=== PATIENT | female | born 1995 | race Caucasian/White ===

== ENCOUNTER → 2017-07-10 | Outpatient (REF) | payer OTHER | LOC: M LAB REF 20:44 | PROVIDERS: ATTEND Physician Assistant | DX: N39.0 Urinary tract infection, site not specified (principal) ==

== ENCOUNTER → 2017-07-22 | Outpatient (REF) | payer OTHER | LOC: M LAB REF 16:29 | PROVIDERS: ATTEND Physician Assistant | DX: R30.0 Dysuria (principal) ==

== ENCOUNTER → 2017-08-06 | Outpatient (REF) | payer OTHER | LOC: M LAB REF 20:44 | PROVIDERS: ATTEND Physician Assistant | DX: N39.0 Urinary tract infection, site not specified (principal) ==

== ENCOUNTER → 2017-11-03 | Outpatient (REF) | payer OTHER | LOC: M LAB REF 16:40 | DX: R30.0 Dysuria (principal) ==

== ENCOUNTER → 2018-01-30 | Outpatient (REF) | payer OTHER | LOC: M LAB REF 12:19 | DX: N39.0 Urinary tract infection, site not specified (principal) ==

== ENCOUNTER → 2018-07-21 | Outpatient (REF) | payer OTHER ==
[2018-07-22 02:21] LABS: CHLAMYDIA DNA AMPLIFICATION NEGATIVE (NEGATIVE); GC DNA AMPLIFICATION NEGATIVE (NEGATIVE)
== END ==
LOC: M LAB REF 16:34
DX: R30.0 Dysuria (principal)

== ENCOUNTER → 2018-12-06 | Outpatient (REF) | payer OTHER | LOC: M LAB REF 09:14 | PROVIDERS: ATTEND Physician Assistant | DX: A08.4 Viral intestinal infection, unspecified (principal) ==

== ENCOUNTER → 2020-02-03 | Outpatient (REF) | payer OTHER ==
[2020-02-03 17:39] LABS: HEMATOCRIT 40.6 % (36.0-47.0); HEMOGLOBIN 14.2 g/dl (12.0-15.5); MEAN CORPUSCULAR HEMOGLOBIN 30.9 pg (27.0-33.0); MEAN CORPUSCULAR VOLUME 88.3 fl (80.0-96.0); PLATELET COUNT, AUTOMATED 267 10^3/uL (150-450); WHITE BLOOD COUNT 6.6 10^3/uL (4.0-10.0)
[2020-02-03 18:09] LABS: HCG, SERUM QUANTITATIVE 106423 MIU/ML
[2020-02-04 08:15] LABS: RUBELLA IgG QUALITATIVE IMMUNE (IMMUNE)
[2020-02-04 08:44] LABS: HIV 1&2 SCREEN CENTAUR NEGATIVE (NEGATIVE)
[2020-02-04 09:10] LABS: HEPATITIS C VIRUS ABY INDEX 0.1 INDEX (<0.8)
== END ==
LOC: M LAB REF 17:01
PROVIDERS: ATTEND Obstetrics & Gynecology
DX: Z36.89 Encounter for other specified antenatal screening (principal); Z3A.00 Weeks of gestation of pregnancy not specified

== ENCOUNTER → 2020-03-29 | Outpatient (CLI) | payer OTHER ==
[2020-03-29 13:51] LABS: BASO % 0.1 % (0.0-1.0); LYMPH # 0.6 10^3/uL (1.5-5.0); LYMPH % 5.1 % (24.0-44.0); MEAN CORPUSCULAR HEMOGLOBIN 30.7 pg (27.0-33.0); MEAN CORPUSCULAR HGB CONC 35.3 g/dl (32.0-36.5); MONO # 0.5 10^3/uL (0.0-0.8); MONO % 4.2 % (0.0-5.0); NEUTROPHILS # 10.3 10^3/uL (1.5-8.5); NEUTROPHILS % 90.1 % (36.0-66.0); PLATELET COUNT, AUTOMATED 222 10^3/uL (150-450); RED BLOOD COUNT 3.91 10^6/uL (4.00-5.40); WHITE BLOOD COUNT 11.4 10^3/uL (4.0-10.0)
[2020-03-29 13:57] LABS: ALBUMIN 3.3 GM/DL (3.2-5.2); ALT/SGPT 13 U/L (12-78); BILIRUBIN,TOTAL 1.1 MG/DL (0.2-1.0); BLOOD UREA NITROGEN 4 MG/DL (7-18); CALCIUM LEVEL 9.2 MG/DL (8.5-10.1); CARBON DIOXIDE LEVEL 24 MEQ/L (21-32); CHLORIDE LEVEL 103 MEQ/L (98-107); CREATININE FOR GFR 0.48 MG/DL (0.55-1.30); GLOMERULAR FILTRATION RATE > 60.0 (>60); GLUCOSE, FASTING 84 MG/DL (70-100); POTASSIUM SERUM 3.3 MEQ/L (3.5-5.1); SODIUM LEVEL 135 MEQ/L (136-145); TOTAL PROTEIN 7.8 GM/DL (6.4-8.2)
[2020-03-29 15:39] LABS: CHLAMYDIA DNA AMPLIFICATION NEGATIVE (NEGATIVE); GC DNA AMPLIFICATION NEGATIVE (NEGATIVE)
== END ==
LOC: M WUC 12:10
PROVIDERS: ATTEND Physician Assistant
DX: R30.0 Dysuria (principal); R11.2 Nausea with vomiting, unspecified

== ENCOUNTER → 2020-04-11 | Outpatient (REF) | payer OTHER | LOC: M LAB REF 12:15 | PROVIDERS: ATTEND Obstetrics & Gynecology | DX: N39.0 Urinary tract infection, site not specified (principal) ==

== ENCOUNTER → 2020-09-08 | Outpatient (CLI) | payer OTHER ==
[~2020-09-08] MED LIST: MULTTAB20 PO
== END ==
LOC: M LABSMTC 10:53
PROVIDERS: ATTEND Anesthesiology
DX: Z01.812 Encounter for preprocedural laboratory examination (principal); Z20.828 Contact with and (suspected) exposure to other viral communicable diseases

== ENCOUNTER 2020-09-13 05:29 | Inpatient (IN) | payer OTHER, BC ==
[~2020-09-13] VITALS: Ht 160 cm; Wt 56.8 kg
[2020-09-13] VITALS (9 sets, daily range): BP systolic 122–144; BP diastolic 66–96
[2020-09-13] MEDS ORDERED: LACTATED RINGER'S 1000 ML IV STA (05:41)
[2020-09-13] MEDS ORDERED: LR 1,000 ML IV SCH (05:41)
[2020-09-13] MEDS ORDERED: BICITRA 30ML SOLN UDC PO ONE (05:45)
[2020-09-13] MEDS ORDERED: ceFAZolin SOD 2 GM in IV 1 EA IV ONE (05:45)
[2020-09-13 06:35] LABS: HEMATOCRIT 40.3 % (36.0-47.0); MEAN CORPUSCULAR HEMOGLOBIN 28.3 pg (27.0-33.0); MEAN CORPUSCULAR HGB CONC 32.3 g/dl (32.0-36.5); MEAN CORPUSCULAR VOLUME 87.6 fl (80.0-96.0); PLATELET COUNT, AUTOMATED 190 10^3/uL (150-450); WHITE BLOOD COUNT 9.5 10^3/uL (4.0-10.0)
[2020-09-13] MEDS ORDERED: ONDANSETRON 4MG/2ML VIAL As Ordered ONE (07:15)
[2020-09-13] MEDS ORDERED: OXYTOCIN INJ 10 UNITS/ML VIAL (J2590) As Ordered ONE (07:15)
[2020-09-13] MEDS ORDERED: dexameTHASONE 4 MG/ML 1ML VIAL (J1100 PER 1MG) As Ordered ONE (07:15)
[2020-09-13] MEDS ORDERED: fentaNYL 100 MCG/2 ML INJECTION (J3010) As Ordered ONE (07:15)
[2020-09-13] MEDS ORDERED: MORPHINE PRES-FREE INJ 10 MG/10 ML VIAL (J2274) As Ordered ONE (07:16)
[2020-09-13] MEDS ORDERED: OXYTOCIN DRIP 30 UNITS in IV 1 EA IV SCH (07:35)
[2020-09-13] MEDS ORDERED: MEASLES,MUMPS,RUBELLA VACCINE INJ (MMR-II) (90707) SC SCH (07:45)
[2020-09-13] MEDS ORDERED: RHOGAM 300 MCG (1500 IU) INJ (J2790) IM SCH (07:45)
[2020-09-13] MEDS ORDERED: MOM 30ML SUSPENSION UDC PO PRN (07:45)
[2020-09-13] MEDS ORDERED: ePHEDrine SULFATE 25 MG/5 ML(5MG/ML) SYRINGE As Ordered ONE (07:52)
[2020-09-13] MEDS ORDERED: diphenhydrAMINE 50MG/ML VIAL (J1200) IV PRN ×2 (07:53→09:30)
[2020-09-13] MEDS ORDERED: ONDANSETRON 4MG/2ML VIAL IV PRN ×2 (07:53→09:30)
[2020-09-13] MEDS ORDERED: NALOXONE INJ 0.4MG/1ML VIAL (J2310 PER 1MG) IV PRN ×2 (07:53)
[2020-09-13] MEDS ORDERED: METOCLOPRAMIDE INJ 10MG/2ML VIAL (J2765 PER 1) IV PRN (07:53)
[2020-09-13 08:14] LABS: CORD GAS ABE A 1.2; CORD GAS HCO3 A 30.6 MEQ/L; CORD GAS O2 SAT A 35.8 %; CORD GAS PCO2 A 72.3 mmHg; CORD GAS PH A 7.245 UNITS; CORD GAS PO2 A 18.3 mmHg; CORD GAS SBC A 24.1 MEQ/L; CORD GAS TCO2 A 32.9 MEQ/L
[2020-09-13 08:16] LABS: CORD GAS ABE V -1.7; CORD GAS HCO3 V 25.5 MEQ/L; CORD GAS O2 SAT V 76.5 %; CORD GAS PCO2 V 52.9 mmHg; CORD GAS PH V 7.301 UNITS; CORD GAS PO2 V 33.3 mmHg; CORD GAS SBC V 22.6 MEQ/L; CORD GAS TCO2 V 27.1 MEQ/L
[2020-09-13] MEDS: DOCUSATE SODIUM 100MG CAPSULE PO SCH ×2 (09:00→20:20)
[2020-09-13] MEDS: PRENATAL VITAMINS CHEWABLE TABLET PO SCH (09:00)
[2020-09-13] MEDS ORDERED: OXYTOCIN 30 UNITS IN 0.9% NaCl 500ML IV BAG (J2590) As Ordered ONE (09:29)
[2020-09-13] MEDS ORDERED: oxyCODONE 5MG TAB PO PRN (09:30)
[2020-09-13] MEDS ORDERED: MEPERIDINE INJ 25 MG/ML VIAL (J2175) IV PRN (09:30)
[2020-09-13] MEDS ORDERED: HYDROMORPHONE HCL 0.5 MG/ 0.5 ML SYRINGE (J1170 PER 1) IV PRN (09:30)
[2020-09-13] MEDS ORDERED: fentaNYL 100 MCG/2 ML INJECTION (J3010) IV PRN (09:30)
[2020-09-13] MEDS: PERCOCET 5MG/325MG TAB PO PRN ×2 (12:09→18:37)
[2020-09-13] MEDS: KETOROLAC 30 MG/ML 1ML VIAL IV SCH ×2 (14:26→20:20)
[2020-09-14 02:00] VITALS: BP 128/77
[2020-09-14] MEDS: KETOROLAC 30 MG/ML 1ML VIAL IV SCH (02:00)
[2020-09-14] MEDS: PERCOCET 5MG/325MG TAB PO PRN ×3 (05:59→21:37)
[2020-09-14 06:00] VITALS: BP 131/71
[2020-09-14 07:53] LABS: HEMATOCRIT 29.5 % (36.0-47.0); MEAN CORPUSCULAR HEMOGLOBIN 28.8 pg (27.0-33.0); MEAN CORPUSCULAR HGB CONC 32.2 g/dl (32.0-36.5); MEAN CORPUSCULAR VOLUME 89.4 fl (80.0-96.0); PLATELET COUNT, AUTOMATED 138 10^3/uL (150-450); WHITE BLOOD COUNT 12.1 10^3/uL (4.0-10.0)
[2020-09-14 07:55] LABS: HEMOGLOBIN 9.5 g/dl (12.0-15.5)
[2020-09-14] MEDS: DOCUSATE SODIUM 100MG CAPSULE PO SCH ×2 (08:04→21:17)
[2020-09-14] MEDS: PRENATAL VITAMINS CHEWABLE TABLET PO SCH (08:04)
[2020-09-14] MEDS: IBUPROFEN 800 MG TAB PO SCH ×2 (09:02→18:14)
[2020-09-14 10:00] VITALS: BP 120/81
[2020-09-14 14:00] VITALS: BP 129/80
[2020-09-14 18:00] VITALS: BP 131/78
[2020-09-14 22:00] VITALS: BP 138/88
[2020-09-15] MEDS: IBUPROFEN 800 MG TAB PO SCH ×2 (01:48→10:14)
[2020-09-15 02:00] VITALS: BP 130/77
[2020-09-15 06:00] VITALS: BP 131/84
[2020-09-15] MEDS ORDERED: PERCOCET PO (07:09)
[2020-09-15] MEDS ORDERED: IBUP80TA PO (07:09)
[2020-09-15] MEDS: DOCUSATE SODIUM 100MG CAPSULE PO SCH (07:29)
[2020-09-15] MEDS: PRENATAL VITAMINS CHEWABLE TABLET PO SCH (07:29)
[2020-09-15] MEDS: PERCOCET 5MG/325MG TAB PO PRN (07:30)
--- NOTE | 2020-09-15 12:32 | RO ---
OPERATIVE NOTE DATE OF OPERATION: 09/13/2020 Summer is a 24-year-old female 1 para 0 who was admitted at 39-4/7 weeks gestation with breech presentation for elective primary section. PREOPERATIVE DIAGNOSIS: Breech presentation at term. POSTOPERATIVE DIAGNOSES: 1. Breech presentation at term. 2. Double footling breech. PROCEDURE: Primary low transverse section via Pfannenstiel incision. ANESTHESIA: Spinal. SURGEON: Maikol Deluna DO SENIOR LITIGATION PARALEGAL: Kaycee Jimenez COMPLICATIONS: None. ESTIMATED BLOOD LOSS: 500 mL. FINDINGS: Live female , double footling breech; 7/9; weight 7 pounds 7 ounces. Normal-appearing tubes and ovaries. PROCEDURE: After obtaining informed consent, the patient was taken to the operating room. Once spinal anesthetic was found to be adequate, she was then draped and prepped in the usual sterile fashion in the supine position. At this point, a Escalante catheter was placed in the bladder for drainage. We then made a Pfannenstiel incision with the help of Kaycee Jimenez. The incision was carried down to the fascia. The fascia was incised in the midline fashion and carried through the laterally. The superior aspect of the fascia was then grasped with a Tia clamp and tented off and dissected off the rectus muscles sharply. The inferior aspect was dissected off in a similar fashion. Rectus muscles were severe in midline fashion. Peritoneum identified. Peritoneal cavity entered bluntly. Superior and inferior dissection of the peritoneum was then done with good visualization of the bladder. At this point, a Mobius skin retractor was placed. A low transverse uterine incision was made. The infant was delivered in atraumatic fashion. The nose and mouth bulb suctioned, the cord doubly clamped and cut and infant was handed over to the waiting warmer. Cord blood and cord gas was sent. Placenta removed manually. Uterus cleared of all clots and debris, and the uterine incision was then repaired in two separate layers of 0 Vicryl suture. The fascia was closed in two separate segments of 0 Vicryl sutures. All superficial bleeders coagulated. The skin was then reapproximated in subcuticular fashion using 3-0 Vicryl on a Fausto. Steri-Strips placed. The patient tolerated the procedure well. She was then transferred to the recovery room in stable condition. [facility]
== END 2020-09-15 11:45 | disposition home or self-care (01) | DRG 540 ==
LOC: M LDI 05:29 → M OBS 10:47
PROVIDERS: ADMIT Obstetrics & Gynecology; ATTEND Obstetrics & Gynecology
PROC: 10D00Z1 Extraction of Products of Conception, Low, Open Approach (ICD-10-PCS; principal; 2020-09-13 07:30)
DX: O32.8XX0 Maternal care for other malpresentation of fetus, not applicable or unspecified (principal); Z3A.39 39 weeks gestation of pregnancy; Z37.0 Single live birth

== ENCOUNTER → 2021-02-04 | Outpatient (REF) ==
[~2021-02-04] MED LIST changes: +IBUP80TA PO; +PERCOCET PO
== END ==
LOC: M LABSMTC 09:18
PROVIDERS: ATTEND Pediatrics
DX: Z20.822 Contact with and (suspected) exposure to COVID-19 (principal)

== ENCOUNTER → 2021-06-28 | Outpatient (REF) | LOC: M LABSMTC 11:07 | PROVIDERS: ATTEND Family Medicine | DX: Z20.828 Contact with and (suspected) exposure to other viral communicable diseases (principal) ==

== ENCOUNTER → 2022-07-12 | Outpatient (REF) ==
[2022-07-12 16:51] LABS: RSV AMPLIFICATION NEGATIVE (NEGATIVE)
== END ==
LOC: M EMP 13:55
PROVIDERS: ATTEND Family Medicine
DX: Z20.822 Contact with and (suspected) exposure to COVID-19 (principal)

== ENCOUNTER → 2022-08-20 | Outpatient (CLI) | payer BC, OTHER ==
[2022-08-20 13:02] LABS: BASO % 0.3 % (0.0-1.0); EOS # 0.1 10^3/uL (0.0-0.5); EOS % 1.2 % (0.0-3.0); HEMATOCRIT 43.8 % (36.0-47.0); HEMOGLOBIN 13.5 g/dl (12.0-15.5); LYMPH # 1.4 10^3/uL (1.5-5.0); LYMPH % 23.1 % (24.0-44.0); MEAN CORPUSCULAR HEMOGLOBIN 27.1 pg (27.0-33.0); MEAN CORPUSCULAR HGB CONC 30.8 g/dl (32.0-36.5); MEAN CORPUSCULAR VOLUME 87.8 fl (80.0-96.0); MONO # 0.8 10^3/uL (0.0-0.8); MONO % 12.9 % (2.0-8.0); NEUTROPHILS # 3.7 10^3/uL (1.5-8.5); NEUTROPHILS % 62.2 % (36.0-66.0); PLATELET COUNT, AUTOMATED 302 10^3/uL (150-450); RED BLOOD COUNT 4.99 10^6/uL (4.00-5.40)
[2022-08-20 13:52] LABS: ALBUMIN 3.7 GM/DL (3.2-5.2); ALT/SGPT 41 U/L (12-78); BILIRUBIN,TOTAL 0.3 MG/DL (0.2-1.0); BLOOD UREA NITROGEN 3 MG/DL (7-18); CALCIUM LEVEL 9.5 MG/DL (8.5-10.1); CARBON DIOXIDE LEVEL 30 MEQ/L (21-32); CHLORIDE LEVEL 104 MEQ/L (98-107); CREATININE FOR GFR 0.65 MG/DL (0.55-1.30); FERRITIN 8 NG/ML (8-252); GLOMERULAR FILTRATION RATE > 60.0 (>60); GLUCOSE, FASTING 70 MG/DL (70-100); IRON (FE) 29 UG/DL (50-170); PERCENT SATURATION 6.7 % (13.2-45.0); POTASSIUM SERUM 3.9 MEQ/L (3.5-5.1); SODIUM LEVEL 140 MEQ/L (136-145); TOTAL IRON BINDING CAPACITY 435 UG/DL (250-450); TOTAL PROTEIN 8.5 GM/DL (6.4-8.2)
[2022-08-20 14:31] LABS: TOTAL 25(OH) VITAMIN D 29.1 NG/ML (30.0-100.0); VITAMIN B12 LEVEL 676 PG/ML (247-911)
== END ==
LOC: M LAB 11:57
PROVIDERS: ATTEND Nurse Practitioner Family
DX: D50.9 Iron deficiency anemia, unspecified (principal)

== ENCOUNTER → 2024-10-23 | Outpatient (REF) | payer BC, OTHER | LOC: M LAB REF 17:15 | PROVIDERS: ATTEND Physician Assistant Medical | DX: J20.9 Acute bronchitis, unspecified (principal) ==

== ENCOUNTER 2025-01-20 14:34 | Emergency (ER) | payer OTHER, BC ==
[~2025-01-20] VITALS: Ht 160 cm; Wt 46.7 kg
[2025-01-20] MEDS ORDERED: MUPI2OI TOP (18:19)
[2025-01-20] MEDS ORDERED: NAPR-885 PO (18:19)
[2025-01-20 18:35] VITALS: BP 108/70; TEMP 97.9; O2SAT 100
== END 2025-01-20 18:36 | disposition home or self-care (01) ==
LOC: M ED 14:34
DX: T23.141A Burn of first degree of multiple right fingers (nail), including thumb, initial encounter (principal); X15.3XXA Contact with hot saucepan or skillet, initial encounter; F32.A Depression, unspecified; D64.9 Anemia, unspecified; F41.9 Anxiety disorder, unspecified; Y92.238 Other place in hospital as the place of occurrence of the external cause; Y93.89 Activity, other specified; Y99.0 Civilian activity done for income or pay; Z79.899 Other long term (current) drug therapy; T31.0 Burns involving less than 10% of body surface

== ENCOUNTER → 2025-06-23 | Outpatient (RCR) ==
[~2025-06-23] MED LIST changes: +MUPI2OI TOP; +NAPR-885 PO; +ONDA-282 PO
== END ==
LOC: M EMPSSV 06-13 12:46
PROVIDERS: ATTEND Family Medicine
DX: Z20.828 Contact with and (suspected) exposure to other viral communicable diseases (principal)

== ENCOUNTER → 2025-10-03 | Outpatient (REF) | payer BC | LOC: M LAB REF 22:55 | PROVIDERS: ATTEND Physician Assistant Medical | DX: B34.9 Viral infection, unspecified (principal) ==